=== PATIENT | female | born 1935 | race Caucasian/White ===

== ENCOUNTER 2019-11-13 09:05 | Emergency (ER) | payer MEDICARE, BC ==
--- NOTE | 2019-11-13 09:31 | EDM.PDOC ---
ED HPI GENERAL MEDICAL PROBLEM - General Chief Complaint: General Stated Complaint: Confusion Time Seen by Provider: 11/13/19 09:05 Source of Information: Reports: Patient, EMS, Family History Limitations: Reports: No Limitations - History of Present Illness INITIAL COMMENTS - FREE TEXT/NARRATIVE: 84 YO WF presents to ER complaining of feeling "off" and confused since midnight today. Pt reports she was having trouble remembering her prayers last night. Pt states she was recently treated for the flu 2 weeks ago and recently finished a course of antibiotics for a UTI. Pt denies chest pain/shortness of breath. Pt denies cough/congestion. Pt denies fever/chills. Pt states she woke this am feeling shaky and was having trouble checking her blood pressure and blood sugar at home. Pt states she was able to ambulate without difficulty. Pt reports she took her morning medications with juice this am and denies any dysphagia. Pt was able to write her name for EMS. Pt without slurred speech, facial droop, pronator drift or focal neurological deficits. Pt is alert and oriented x 4 and in NAD. Pt denies dysuria but states she does have urgency and frequency. Onset: Today Onset Date: 11/13/19 Onset Time: 00:00 Duration: Hour(s): (9) Location: Reports: Head Severity: Mild Improves with: Reports: None Worsens with: Reports: None Associated Symptoms: Reports: No Other Symptoms, Confusion, Weakness. Denies: Chest Pain, Cough, Diaphoresis, Fever/Chills, Headaches, Nausea/Vomiting, Seizure, Shortness of Breath, Syncope - Related Data Allergies Allergy/AdvReac Type Severity Reaction Status Date / Time No Known Drug Allergies Allergy Other Verified 11/13/19 09:31 Home Meds: Home Meds Acetaminophen [Tylenol Extra Strength] 1,000 mg PO Q6HR PRN 11/13/19 [History] Amoxicillin 2,000 mg PO ONETIME PRN 11/13/19 [History] Aspirin 81 mg PO DAILY 11/13/19 [History] Bumetanide [Bumex] 0.5 mg PO DAILY 11/13/19 [History] Cephalexin [Keflex] 500 mg PO TID #30 capsule 11/13/19 [Rx] Clopidogrel [Plavix] 75 mg PO DAILY 11/13/19 [History] Levothyroxine [Synthroid] 100 mcg PO DAILY 11/13/19 [History] Oxybutynin Chloride [Ditropan Xl] 10 mg PO DAILY 11/13/19 [History] Simvastatin 10 mg PO BEDTIME 11/13/19 [History] Verapamil HCl [Verapamil Sr] 240 mg PO BID 11/13/19 [History] metFORMIN [Glucophage] 500 mg PO BID 11/13/19 [History] ED ROS GENERAL - Review of Systems Review Of Systems: See Below Constitutional: Reports: Weakness HEENT: Reports: No Symptoms Respiratory: Reports: No Symptoms Cardiovascular: Reports: No Symptoms Endocrine: Reports: No Symptoms GI/Abdominal: Reports: No Symptoms : Reports: Frequency, Urgency. Denies: Dysuria Musculoskeletal: Reports: No Symptoms Skin: Reports: No Symptoms Neurological: Reports: Confusion, Weakness. Denies: Dizziness, Headache, Numbness, Paresthesia, Seizure, Syncope, Trouble Speaking, Difficulty Walking, Change in Speech, Gait Disturbance Psychiatric: Reports: No Symptoms Hematologic/Lymphatic: Reports: No Symptoms Immunologic: Reports: No Symptoms ED EXAM, NEURO - Physical Exam Exam: See Below Exam Limited By: No Limitations General Appearance: Alert, WD/WN, No Apparent Distress Eye Exam: Bilateral Eye: EOMI, PERRL Throat/Mouth: Normal Inspection, Normal Lips, Normal Teeth, Normal Gums, Normal Oropharynx, Normal Voice, No Airway Compromise Head Exam: Atraumatic, Normocephalic Neck: Normal Inspection, Supple, Non-Tender, Full Range of Motion Respiratory/Chest: No Respiratory Distress, Lungs Clear, Normal Breath Sounds, No Accessory Muscle Use, Chest Non-Tender Cardiovascular: Normal Peripheral Pulses, Regular Rate, Rhythm, No Edema, No Gallop, No JVD, No Murmur, No Rub GI/Abdominal: Normal Bowel Sounds, Soft, Non-Tender, No Organomegaly, No Distention, No Abnormal Bruit, No Mass Neurological: Alert, Normal Mood/Affect, Normal Dorsiflexion, CN II-XII Intact, Normal Plantar Flexion, Normal Gait, Normal Reflexes, No Motor/Sensory Deficits , Oriented x 3 Back Exam: Normal Inspection, Full Range of Motion, NT Extremities: Normal Inspection, Normal Range of Motion, Non-Tender, No Pedal Edema, Normal Capillary Refill Psychiatric: Normal Affect, Normal Mood Skin Exam: Warm, Dry, Intact, Normal Color, No Rash EKG INTERPRETATION EKG Date: 11/13/19 Time: 09:30 Rhythm: NSR Rate (Beats/Min): 75 [place]: Normal P-Wave: Present QRS: Normal ST-T: Normal QT: Normal Course - Orders/Labs/Meds Orders: Active Orders 24 hr Category Date Time Status Cardiac Monitoring [RC] . DIRECTED Care 11/13/19 09:15 Ordered EKG Documentation Completion [RC] ASDIRECTED Care 11/13/19 09:16 Ordered CULTURE URINE [RM] Stat Lab 11/13/19 09:44 Ordered Labs: Laboratory Tests 11/13/19 11/13/19 11/13/19 Range/Units 08:50 08:50 08:50 WBC 12.17 H (5.00-10.00) 10^3/uL RBC 4.48 (3.80-5.50) 10^6/uL Hgb 13.2 (12.0-16.0) g/dL Hct 40.9 (37.0-47.0) % MCV 91.3 (82.0-92.0) fL MCH 29.5 (27.0-31.0) pg MCHC 32.3 (32.0-36.0) g/dL RDW 14.2 (11.5-14.5) % Plt Count 361 (150-400) 10^3/uL MPV 9.7 (7.4-10.4) fL Immature Gran % (Auto) 0.2 (0.0-5.0) % Neut % (Auto) 75.2 H (50.0-70.0) % Lymph % (Auto) 14.7 L (20.0-40.0) % [place] % (Auto) 9.0 H (2.0-8.0) % Eos % (Auto) 0.7 L (1.0-3.0) % Baso % (Auto) 0.2 (0.0-1.0) % Immature Gran # (Auto) 0.02 (0.00-0.50) 10^3/uL Neut # (Auto) 9.16 H (2.50-7.00) 10^3/uL Lymph # (Auto) 1.79 (1.00-4.00) 10^3/uL [place] # (Auto) 1.09 H (0.10-0.80) 10^3/uL Eos # (Auto) 0.08 L (0.10-0.30) 10^3/uL Baso # (Auto) 0.03 (0.00-0.10) 10^3/uL PT 9.9 (8.9-11.4) SEC INR 1.0 (0.9-1.1) APTT 23.0 L (23.1-31.9) SEC Sodium 140 (136-145) mmol/L Potassium 4.0 (3.3-5.3) mmol/L Chloride 101 (98-115) mmol/L Carbon Dioxide 23.7 (21.0-32.0) mmol/L Anion Gap 19.3 H (5-15) mmol/L BUN 11 (6-25) mg/dL Creatinine 0.66 (0.51-1.17) mg/dL Est Cr Clr Drug Dosing 43.95 mL/min Estimated GFR (MDRD) > 60 mL/min Glucose 237 H (75 - 99) mg/dL Calcium 9.1 (8.7-10.3) mg/dL Total Bilirubin 0.5 (0.2-1.0) mg/dL AST 14 L (15-37) U/L ALT 34 (12-78) U/L Alkaline Phosphatase 96 (46-116) IU/L Creatine Kinase 49 (26-276) U/L CK-MB (CK-2) 0.90 (0.00-4.30) ng/mL Troponin I 0.06 (0.00-0.070) ng/mL Total Protein 7.1 (6.4-8.2) g/dL Albumin 3.23 (3.00-4.80) g/dL Specimen Type Urine Color (YELLOW) Urine Appearance (CLEAR) Urine pH (5.0-9.0) Ur Specific [place] (1.005-1.030) Urine Protein (NEGATIVE) mg/dL Urine Glucose (UA) (NEGATIVE) mg/dL Urine Ketones (NEGATIVE) mg/dL Urine Occult Blood (NEGATIVE) Urine Nitrite (NEGATIVE) Urine Bilirubin (NEGATIVE) Urine Urobilinogen (0.2-1.0) E.U./dL Ur Leukocyte Esterase (NEGATIVE) Urine RBC (0-5) /HPF Urine WBC (0-5) /HPF Ur Epithelial Cells /LPF Urine Bacteria (NONE TO FEW) /HPF Urine Yeast (NEGATIVE) /HPF 11/13/19 Range/Units 09:15 WBC (5.00-10.00) 10^3/uL RBC (3.80-5.50) 10^6/uL Hgb (12.0-16.0) g/dL Hct (37.0-47.0) % MCV (82.0-92.0) fL MCH (27.0-31.0) pg MCHC (32.0-36.0) g/dL RDW (11.5-14.5) % Plt Count (150-400) 10^3/uL MPV (7.4-10.4) fL Immature Gran % (Auto) (0.0-5.0) % Neut % (Auto) (50.0-70.0) % Lymph % (Auto) (20.0-40.0) % [place] % (Auto) (2.0-8.0) % Eos % (Auto) (1.0-3.0) % Baso % (Auto) (0.0-1.0) % Immature Gran # (Auto) (0.00-0.50) 10^3/uL Neut # (Auto) (2.50-7.00) 10^3/uL Lymph # (Auto) (1.00-4.00) 10^3/uL [place] # (Auto) (0.10-0.80) 10^3/uL Eos # (Auto) (0.10-0.30) 10^3/uL Baso # (Auto) (0.00-0.10) 10^3/uL PT (8.9-11.4) SEC INR (0.9-1.1) APTT (23.1-31.9) SEC Sodium (136-145) mmol/L Potassium (3.3-5.3) mmol/L Chloride (98-115) mmol/L Carbon Dioxide (21.0-32.0) mmol/L Anion Gap (5-15) mmol/L BUN (6-25) mg/dL Creatinine (0.51-1.17) mg/dL Est Cr Clr Drug Dosing mL/min Estimated GFR (MDRD) mL/min Glucose (75 - 99) mg/dL Calcium (8.7-10.3) mg/dL Total Bilirubin (0.2-1.0) mg/dL AST (15-37) U/L ALT (12-78) U/L Alkaline Phosphatase (46-116) IU/L Creatine Kinase (26-276) U/L CK-MB (CK-2) (0.00-4.30) ng/mL Troponin I (0.00-0.070) ng/mL Total Protein (6.4-8.2) g/dL Albumin (3.00-4.80) g/dL Specimen Type Urinvoid Urine Color Yellow (YELLOW) Urine Appearance Slightly cloudy H (CLEAR) Urine pH 6.0 (5.0-9.0) Ur Specific [place] 1.020 (1.005-1.030) Urine Protein Negative (NEGATIVE) mg/dL Urine Glucose (UA) Negative (NEGATIVE) mg/dL Urine Ketones Negative (NEGATIVE) mg/dL Urine Occult Blood Negative (NEGATIVE) Urine Nitrite Negative (NEGATIVE) Urine Bilirubin Negative (NEGATIVE) Urine Urobilinogen 0.2 (0.2-1.0) E.U./dL Ur Leukocyte Esterase Moderate H (NEGATIVE) Urine RBC 5-10 H (0-5) /HPF Urine WBC >100 H (0-5) /HPF Ur Epithelial Cells Moderate H /LPF Urine Bacteria Moderate H (NONE TO FEW) /HPF Urine Yeast Few H (NEGATIVE) /HPF Meds: Medications Discontinued Medications Generic Name Dose Route Start Last Admin Trade Name Freq PRN Reason Stop Dose Admin Ceftriaxone Sodium 1 gm 11/13/19 09:44 11/13/19 10:02 Rocephin IVPUSH 11/13/19 09:45 1 gm ONETIME ONE Administration Sterile Water Confirm 11/13/19 10:00 Sterile Water For Injection Administered 11/13/19 10:01 Dose 20 mls @ as directed .ROUTE .STK-MED ONE - Radiology Interpretation Free Text/Narrative:: CT Head- NAD - Re-Assessments/Exams Free Text/Narrative Re-Assessment/Exam: 11/13/19 10:23 Pt reports no confusion. Pt states she feels better and wants to go home. Pt alert and oriented x 4. Pt lives with son who is comfortable caring for her and will return if her symptoms return or worsen. Departure - Departure Time of Disposition: 10:27 Disposition: Home, Self-Care 01 Condition: Good Clinical Impression: Hyperglycemia, Weakness Urinary tract infection Qualifiers: Urinary tract infection type: acute cystitis Hematuria presence: without hematuria Qualified Code(s): N30.00 - Acute cystitis without hematuria - Discharge Information Prescriptions: Cephalexin [Keflex] 500 mg PO TID #30 capsule Instructions: Urine Culture and Sensitivity Testing, Hyperglycemia, Urinary Tract Infection, Adult, [id number], Weakness, [id number] Referrals: Anaya Jefferson FELT PULLER [Nurse Practitioner] - Forms: ED Department Discharge Additional Instructions: 1. Discharge home 2. Keflex 500mg TID x 7 days 3. follow up with [facility] next 2-3 days for urine culture results and further evaluation and treatment as necessary 4. return to ER for worsening symptoms 5. continue home medications as directed Sepsis Event Note - Focused Exam Date Exam was Performed: 11/13/19 Time Exam was Performed: 10:23 - My Orders Last 24 Hours: My Active Orders 11/13/19 09:15 Cardiac Monitoring [RC] . DIRECTED 11/13/19 09:16 EKG Documentation Completion [RC] ASDIRECTED 11/13/19 09:44 CULTURE URINE [RM] Stat - Assessment/Plan Last 24 Hours: My Active Orders 11/13/19 09:15 Cardiac Monitoring [RC] . DIRECTED 11/13/19 09:16 EKG Documentation Completion [RC] ASDIRECTED 11/13/19 09:44 CULTURE URINE [RM] Stat Assessment:: 1. Weakness- improved 2. UTI 3. confusion- resolved 4. Leukocytosis- will re-evaluate as outpatient 5. hyperglycemia- recommend f/u [id number] Plan: 1. Discharge home 2. Keflex 500mg TID x 7 days 3. follow up with [facility] next 2-3 days for urine culture results and further evaluation and treatment as necessary 4. return to ER for worsening symptoms 5. continue home medications as directed
--- NOTE | 2019-11-13 09:36 | CT ---
[id number] CT/CT Head Stroke Protocol EXAM: CT Head Stroke Protocol CLINICAL DATA: CONFUSION, STROKE PROTOCOL. COMPARISON STUDY: None FINDINGS: No intracranial hemorrhage, extra-axial fluid collection, mass, or acute ischemia. No hydrocephalus. Intracranial atherosclerosis. Paranasal sinuses and mastoid air cells are clear. IMPRESSION: No acute intracranial findings. Colt Duncan MD 11/13/19 0936 Thank you for allowing us to participate in the care of your patient.
[2019-11-13] MEDS ORDERED: cefTRIAXone 1 GM Vial IVPUSH ONE (09:44)
--- NOTE | 2019-11-13 09:46 | CR ---
[id number] RAD/RAD Chest PA or AP 1V EXAM: FRONTAL CHEST INDICATION: CONFUSION. COMPARISON: None. DISCUSSION: Cardiomegaly with mild central vascular congestion. Mild peripheral and basal predominant interstitial opacities may represent the sequela of chronic lung disease, but acute infiltrates or not excluded given the absence of available comparison examinations. Aortic valve prosthesis. Coronary artery stent. IMPRESSION: 1. Cardiomegaly with mild central vascular congestion. Jason Tobin MD 11/13/19 0945 Thank you for allowing us to participate in the care of your patient.
[2019-11-13] MEDS ORDERED: Water For Injection, Sterile 20 ML ONE (10:00)
[2019-11-13 10:07] LABS: ANION GAP 19.3 mmol/L (5-15); CHLORIDE,CL 101 mmol/L (98-115); SODIUM,NA 140 mmol/L (136-145)
== END 2019-11-13 10:50 | disposition home or self-care (01) ==
LOC: KA.ED 09:05
DX: E11.65 Type 2 diabetes mellitus with hyperglycemia (principal); N30.00 Acute cystitis without hematuria; D72.829 Elevated white blood cell count, unspecified; Z79.82 Long term (current) use of aspirin; Z79.02 Long term (current) use of antithrombotics/antiplatelets; Z79.84 Long term (current) use of oral hypoglycemic drugs; Z79.899 Other long term (current) drug therapy
CPT/HCPCS: 70450; 71045; 80053; 81001; 82550; 82553; 84484; 85025; 85610; 85730; 87086; 87088; 87186; 93005; 96374; 99284; 99285-25; J0696

== ENCOUNTER 2021-11-23 10:09 | Observation (INO) | payer MEDICARE, BC ==
[2021-11-23] MEDS ORDERED: Sodium Chloride 0.9% 10 ML Syringe FLUSH PRN (10:14)
[2021-11-23] MEDS ORDERED: Sodium Chloride 0.9% 1,000 ML IV ONE ×3 (10:31→21:53)
[2021-11-23 11:10] LABS: ANION GAP 18.4 mmol/L (5-15)
[2021-11-23] MEDS ORDERED: cefTRIAXone 1 GM Vial IVPUSH ONE (11:57)
[2021-11-23] MEDS ORDERED: NS + KCl 20mEq/L 1,000 ML IV SCH (12:00)
[2021-11-23] MEDS ORDERED: Glucagon,Human Recombinant 1 MG Vial IM PRN (18:13)
[2021-11-23] MEDS ORDERED: 50% Dextrose in Water 50 ML Syringe IVPUSH PRN (18:13)
[2021-11-23] MEDS ORDERED: Nitroglycerin 0.4 MG Tab.SL SL PRN (18:15)
[2021-11-23] MEDS ORDERED: Acetaminophen 325 MG Tab PO PRN (18:18)
[2021-11-23] MEDS ORDERED: Simvastatin 10 MG Tab PO SCH (21:00)
[2021-11-24 07:52] LABS: ANION GAP 14.2 mmol/L (5-15); CHLORIDE,CL 105 mmol/L (98-107); SODIUM,NA 142 mmol/L (136-145)
[2021-11-24] MEDS: Insulin Lispro 100 Unit/ML 3 ML KwikPen SUBCUT SCH ×2 (08:07→11:43)
[2021-11-24] MEDS ORDERED: Aspirin 81 MG Tab.Chew PO SCH (09:00)
[2021-11-24] MEDS ORDERED: LEVOTHYROXINE 100 MCG PO SCH (09:00)
[2021-11-24] MEDS ORDERED: Magnesium Oxide 500 MG Tab PO SCH (10:45)
[2021-11-24] MEDS ORDERED: cefTRIAXone 1 GM Vial IVPUSH SCH ×2 (12:00→19:00)
[2021-11-24] MEDS ORDERED: SIMVASTATIN 20 MG PO SCH (21:00)
== END 2021-11-24 13:28 | disposition home or self-care (01) ==
LOC: KA.ED 10:09 → UNDOADMOB 11:44 → KA.MS 11:44
PROVIDERS: ADMIT Physician Assistant Medical; ATTEND Nurse Practitioner Family
DX: N39.0 Urinary tract infection, site not specified (principal); E87.6 Hypokalemia; E11.65 Type 2 diabetes mellitus with hyperglycemia; F03.90 Unspecified dementia, unspecified severity, without behavioral disturbance, psychotic disturbance, mood disturbance, and anxiety; I25.10 Atherosclerotic heart disease of native coronary artery without angina pectoris; E78.00 Pure hypercholesterolemia, unspecified; I10 Essential (primary) hypertension; F32.A Depression, unspecified; E87.2 Acidosis; E83.42 Hypomagnesemia; I08.1 Rheumatic disorders of both mitral and tricuspid valves; E03.9 Hypothyroidism, unspecified; E83.52 Hypercalcemia; E53.9 Vitamin B deficiency, unspecified; E55.9 Vitamin D deficiency, unspecified; N39.46 Mixed incontinence; N90.5 Atrophy of vulva; M81.0 Age-related osteoporosis without current pathological fracture; G89.29 Other chronic pain; M54.50 Low back pain, unspecified; L65.9 Nonscarring hair loss, unspecified; Z20.822 Contact with and (suspected) exposure to COVID-19; Z79.890 Hormone replacement therapy; Z79.82 Long term (current) use of aspirin; Z79.899 Other long term (current) drug therapy; Z98.890 Other specified postprocedural states; Z79.84 Long term (current) use of oral hypoglycemic drugs
CPT/HCPCS: 36415; 71045; 80053; 81001; 82947; 83605; 83735; 85025; 87040; 87086; 96374; 96376; 99284; 99285-25; A9270-GY; G0378; J0696; J1815-GY; J3480; J7030; U0002

== ENCOUNTER 2021-12-02 23:12 | Emergency (ER) | payer MEDICARE, BC ==
[2021-12-02] MEDS ORDERED: Sodium Chloride 0.9% 1,000 ML IV ONE (23:57)
[2021-12-03 00:19] LABS: ANION GAP 15.9 mmol/L (5-15); CHLORIDE,CL 100 mmol/L (98-107); SODIUM,NA 136 mmol/L (136-145)
[2021-12-03] MEDS ORDERED: Sulfamethoxazole/Trimethoprim 800-160 MG Tab PO ONE (00:58)
== END 2021-12-03 01:25 | disposition home or self-care (01) ==
LOC: KA.ED 23:12
DX: N39.0 Urinary tract infection, site not specified (principal); I25.10 Atherosclerotic heart disease of native coronary artery without angina pectoris; E78.00 Pure hypercholesterolemia, unspecified; I10 Essential (primary) hypertension; E11.9 Type 2 diabetes mellitus without complications; Z79.82 Long term (current) use of aspirin; Z79.899 Other long term (current) drug therapy; Z79.84 Long term (current) use of oral hypoglycemic drugs
CPT/HCPCS: 36415; 71046; 80048; 81001; 85025; 87086; 87088; 87186; 99283-25; 99284; A9270-GY; J7030

== ENCOUNTER 2021-12-21 13:18 | Emergency (ER) | payer MEDICARE, BC ==
[2021-12-21 15:11] LABS: CHLORIDE,CL 105 mmol/L (98-107); SODIUM,NA 146 mmol/L (138-146)
[2021-12-21 16:51] LABS: ANION GAP 18.8 mmol/L (5-15)
== END 2021-12-21 15:30 | disposition home or self-care (01) ==
LOC: KA.ED 13:18
DX: R53.1 Weakness (principal); R53.81 Other malaise; R53.83 Other fatigue; I25.10 Atherosclerotic heart disease of native coronary artery without angina pectoris; E78.00 Pure hypercholesterolemia, unspecified; I10 Essential (primary) hypertension; E11.9 Type 2 diabetes mellitus without complications; Z20.822 Contact with and (suspected) exposure to COVID-19; Z79.82 Long term (current) use of aspirin; Z79.899 Other long term (current) drug therapy
CPT/HCPCS: 36415; 71046; 80053; 81003; 82947; 85025; 99284; 99285-25; U0002

== ENCOUNTER 2022-05-08 19:30 | Inpatient (IN) | payer MEDICARE, BC ==
[2022-05-08] MEDS ORDERED: Sodium Chloride 0.9% 10 ML Syringe FLUSH PRN (19:59)
[2022-05-08 20:40] LABS: ANION GAP 19.4 mmol/L (5-15); CHLORIDE,CL 103 mmol/L (98-107); SODIUM,NA 139 mmol/L (136-145)
[2022-05-08 20:52] LABS: ESTIMATED GFR 51 mL/min (>=60)
[2022-05-08] MEDS: Ciprofloxacin in D5W 400 MG in Premix Bag 1 BAG IV SCH ×2 (21:33)
[2022-05-08] MEDS ORDERED: Non-Formulary Medication 1 Each (Omeprazole [Omeprazole] 20 MG Capsule.Dr) PO PRN (22:54)
[2022-05-08] MEDS ORDERED: NITROGLYCERIN 0.4 MG SL SCH (23:00)
[2022-05-08] MEDS ORDERED: Pantoprazole 40 MG Tab.CR PO PRN (23:20)
[2022-05-09] MEDS ORDERED: Nitroglycerin 0.4 MG Tab.SL SL PRN (03:51)
[2022-05-09] MEDS: Levothyroxine 112 MCG Tab PO SCH ×2 (05:57→06:33)
[2022-05-09] MEDS: metFORMIN 500 MG Tab PO SCH ×3 (08:04→17:55)
[2022-05-09] MEDS: Aspirin 81 MG Tab.EC PO SCH (08:05)
[2022-05-09] MEDS: Bumetanide 1 MG Tab PO SCH ×2 (08:05→10:47)
[2022-05-09] MEDS: Verapamil 120 MG Tab.ER PO SCH ×2 (08:05→21:08)
[2022-05-09] MEDS: Magnesium Oxide 500 MG Tab PO SCH (08:08)
[2022-05-09] MEDS: Ciprofloxacin in D5W 400 MG in Premix Bag 1 BAG IV SCH ×4 (08:32→21:08)
[2022-05-09] MEDS ORDERED: Oxybutynin 5 MG Tab.ER PO SCH (09:00)
[2022-05-09 09:02] LABS: ANION GAP 16.6 mmol/L (5-15)
[2022-05-09] MEDS: Acetaminophen 325 MG Tab PO PRN (09:06)
[2022-05-09] MEDS: Enoxaparin 40 MG/0.4 ML Syringe SUBCUT SCH (10:47)
[2022-05-09] MEDS ORDERED: Aluminum Hydroxide/Magnesium Hydroxide/Simethicone Susp 30 ML Cup PO PRN (20:00)
[2022-05-09] MEDS: Sodium Chloride 0.9% 50 ML IV SCH (21:07)
[2022-05-09] MEDS: Simvastatin 10 MG Tab PO SCH (21:08)
[2022-05-09] MEDS: Cyanocobalamin (Vitamin B12) 500 MCG Tab PO SCH (21:08)
[2022-05-10] MEDS: Levothyroxine 112 MCG Tab PO SCH ×2 (05:20→06:29)
[2022-05-10] MEDS: Acetaminophen 325 MG Tab PO PRN (07:03)
[2022-05-10] MEDS: Magnesium Oxide 500 MG Tab PO SCH (08:05)
[2022-05-10] MEDS: Bumetanide 1 MG Tab PO SCH ×2 (08:05→08:07)
[2022-05-10] MEDS: metFORMIN 500 MG Tab PO SCH ×2 (08:05→17:59)
[2022-05-10] MEDS: Verapamil 120 MG Tab.ER PO SCH ×2 (08:06→21:21)
[2022-05-10] MEDS: Aspirin 81 MG Tab.EC PO SCH (08:06)
[2022-05-10 08:17] LABS: ANION GAP 16.8 mmol/L (5-15)
[2022-05-10] MEDS: Ciprofloxacin in D5W 400 MG in Premix Bag 1 BAG IV SCH ×4 (09:34→21:14)
[2022-05-10] MEDS: Enoxaparin 40 MG/0.4 ML Syringe SUBCUT SCH (09:34)
[2022-05-10] MEDS: Sodium Chloride 0.9% 50 ML IV SCH (21:14)
[2022-05-10] MEDS: Simvastatin 10 MG Tab PO SCH (21:21)
[2022-05-10] MEDS: Cyanocobalamin (Vitamin B12) 500 MCG Tab PO SCH (21:21)
[2022-05-11] MEDS: Levothyroxine 112 MCG Tab PO SCH (07:10)
[2022-05-11] MEDS: Acetaminophen 325 MG Tab PO PRN (07:12)
[2022-05-11] MEDS: metFORMIN 500 MG Tab PO SCH (07:56)
[2022-05-11 08:05] LABS: ANION GAP 16.6 mmol/L (5-15)
[2022-05-11] MEDS: Verapamil 120 MG Tab.ER PO SCH (08:32)
[2022-05-11 08:33] VITALS: BP 134/51; PULSE 82
[2022-05-11] MEDS: Aspirin 81 MG Tab.EC PO SCH (08:33)
[2022-05-11] MEDS: Magnesium Oxide 500 MG Tab PO SCH (08:33)
[2022-05-11] MEDS: Bumetanide 1 MG Tab PO SCH (08:33)
[2022-05-11] MEDS: Ciprofloxacin in D5W 400 MG in Premix Bag 1 BAG IV SCH ×2 (08:33)
[2022-05-11] MEDS ORDERED: Bumetanide 1 MG Tab PO SCH (09:00)
[2022-05-11] MEDS ORDERED: Enoxaparin 30 MG/0.3 ML Syringe SUBCUT SCH (10:30)
[2022-05-13] MEDS ORDERED: ERGOCALCIFEROL 50000 UNIT PO SCH (22:54)
[2022-05-13] MEDS ORDERED: Non-Formulary Medication 1 Each (Alendronate Sodium [Fosamax] 70 MG Tablet) PO SCH (22:54)
[2022-05-13] MEDS ORDERED: [UNRECOGNIZED DRUG - OTHER] PO SCH (22:54)
== END 2022-05-11 11:45 | disposition home or self-care (01) | DRG 689 ==
LOC: KA.ED 19:30 → KA.MS 21:10 → UNDOADMIN 22:47 → KA.MS 22:47
PROVIDERS: ADMIT Family Medicine; ATTEND Family Medicine
DX: N30.00 Acute cystitis without hematuria (principal); R53.1 Weakness; D72.829 Elevated white blood cell count, unspecified; D64.9 Anemia, unspecified; I50.33 Acute on chronic diastolic (congestive) heart failure; I11.0 Hypertensive heart disease with heart failure; I25.10 Atherosclerotic heart disease of native coronary artery without angina pectoris; E03.9 Hypothyroidism, unspecified; Z66 Do not resuscitate; K21.9 Gastro-esophageal reflux disease without esophagitis; H91.90 Unspecified hearing loss, unspecified ear; H54.7 Unspecified visual loss; M19.90 Unspecified osteoarthritis, unspecified site; M89.29 Other disorders of bone development and growth, multiple sites; M81.0 Age-related osteoporosis without current pathological fracture; F41.9 Anxiety disorder, unspecified; F32.A Depression, unspecified; E55.9 Vitamin D deficiency, unspecified; E11.9 Type 2 diabetes mellitus without complications; F03.90 Unspecified dementia, unspecified severity, without behavioral disturbance, psychotic disturbance, mood disturbance, and anxiety; E78.00 Pure hypercholesterolemia, unspecified; M54.50 Low back pain, unspecified; G89.29 Other chronic pain; Z20.822 Contact with and (suspected) exposure to COVID-19; Z79.84 Long term (current) use of oral hypoglycemic drugs; Z79.899 Other long term (current) drug therapy; Z79.82 Long term (current) use of aspirin; Z79.890 Hormone replacement therapy; Z79.01 Long term (current) use of anticoagulants; Z95.2 Presence of prosthetic heart valve
CPT/HCPCS: 36415; 71045; 80048; 81001; 83605; 83735; 83880; 84443; 85025; 87040; 87086; 87088; 87186; 96374; 99284; 99285-25; A9270-GY; J0744; J1650; U0002

== ENCOUNTER 2023-05-20 08:34 | Emergency (ER) | payer MEDICARE, BC ==
[2023-05-20 09:05] LABS: APPEARANCE,URINE CLOUDY (CLEAR); BILIRUBIN,URINE NEGATIVE (NEGATIVE); COLOR,URINE YELLOW (YELLOW); GLUCOSE,URINE NEGATIVE (NEGATIVE); KETONES,URINE NEGATIVE (NEGATIVE); LEUKOCYTE ESTERASE,URINE SMALL (NEGATIVE); NITRITE,URINE NEGATIVE (NEGATIVE); OCCULT BLOOD,URINE MODERATE (NEGATIVE); PH,URINE 7.5 (5.0-9.0); PROTEIN,URINE 30 mg/dL (NEGATIVE); UROBILINOGEN,URINE 0.2 E.U./dL (0.2-1.0)
[2023-05-20] MEDS ORDERED: Cefdinir 300 MG Cap PO ONE (09:06)
[2023-05-20 09:11] LABS: BACTERIA,URINE MODERATE /HPF (NONE TO FEW); EPITHELIAL CELLS,URINE RARE /LPF; RBC,URINE 40-50 /HPF (0-5); WBC,URINE 20-30 /HPF (0-5)
== END 2023-05-20 09:30 | disposition home or self-care (01) ==
LOC: KA.ED 08:34
DX: N30.00 Acute cystitis without hematuria (principal); I25.10 Atherosclerotic heart disease of native coronary artery without angina pectoris; I10 Essential (primary) hypertension; E78.00 Pure hypercholesterolemia, unspecified; M19.90 Unspecified osteoarthritis, unspecified site; E11.9 Type 2 diabetes mellitus without complications; E03.9 Hypothyroidism, unspecified; Z79.84 Long term (current) use of oral hypoglycemic drugs; Z79.82 Long term (current) use of aspirin; Z79.899 Other long term (current) drug therapy
CPT/HCPCS: 81001; 87086; 87088; 99283; 99284; A9270-GY